=== PATIENT | male | born 1975 | race Caucasian/White ===

== ENCOUNTER 2016-08-03 13:30 | Day surgery (SDC) | payer BC ==
[2016-07-27 09:01] LABS: HEMATOCRIT 45.5 % (40.0-51.0); HEMOGLOBIN 16.4 g/dL (13.6-17.8)
--- NOTE | ~2016-08-03 | OP ---
Record Of Operation [facility] [address] [facility] [place] [id number] NAME: KEREN HURT : 73 STATUS : [facility] UNIT#: [id number] AGE: 40 ADM/REG DATE : 08/03/16 MR#: [id number] REPORT SERV DATE: 08/03/16 DICTATED BY: SALVADOR LYNCH III DATE: 08/03/16 REPORT STATUS : Draft TRANSCRIBED BY: MODL DATE: 08/03/16 DATE OF PROCEDURE: 08/03/2016 PREOPERATIVE DIAGNOSIS: Enuresis. POSTOPERATIVE DIAGNOSIS: Enuresis plus normal bladder, normal urethra. PROCEDURE: Cystoscopy. SURGEON: Salvador Lynch M.D. ANESTHESIA: MAC. INDICATION: Mr. Hurt is a 40-year-old white male who has had problems with enuresis. He states whenever he has anything alcoholic to drink that he will wet the bed. When he does not drink alcohol, he does not wet the bed. Consent is obtained for cystoscopy to evaluate his anatomy. DESCRIPTION OF PROCEDURE: Consent was obtained, the patient was identified. He was taken to the OR and put to sleep. He was positioned in the low lithotomy position and prepped and draped in usual fashion. The 22-Palestinian cystoscope was made ready and advanced along the course of urethra and into the bladder. The anterior urethra and prostatic urethra were normal. The bladder was inspected. There were no tumors, stones, or foreign bodies. Both ureteral orifices were in normal position and had a normal configuration. The urothelium appeared normal. The bladder was then drained. The scope removed. The patient was awakened and taken to recovery in stable condition. PH/MODL Salvador Lynch III, M.D. / [id number] CC: Edmund Connelly III, M.D.
[~2016-08-03 13:30] MED LIST: CELEXA40 MG PO; GOODY'S EX-STR1 EAC1 PO; NORCO1 TA1 PO
== END 2016-08-03 17:23 | disposition home or self-care (01) ==
LOC: SDC 13:30
PROVIDERS: Urology
PROC: 0TJB8ZZ Inspection of Bladder, Via Natural or Artificial Opening Endoscopic (ICD-10-PCS; principal; 2016-08-03 15:00)
DX: N39.44 Nocturnal enuresis (principal); F41.9 Anxiety disorder, unspecified; G47.33 Obstructive sleep apnea (adult) (pediatric); Z98.890 Other specified postprocedural states; Z90.49 Acquired absence of other specified parts of digestive tract; Z79.82 Long term (current) use of aspirin; Z79.891 Long term (current) use of opiate analgesic
CPT/HCPCS: 85014; 85018; J2250; J3010